=== PATIENT | male | born 1980 | race Caucasian/White ===

== ENCOUNTER 2019-12-26 21:59 | Emergency (ER) | payer MEDICAID ==
[~2019-12-26] VITALS: Ht 188 cm; Wt 158.8 kg
[2019-12-26 22:33] VITALS: BP_SYST 157
--- NOTE | 2019-12-26 22:33 | NUR ---
Patient triaged and placed in waiting room. VSS and patient appears in no acute distress at this time. Accompanied by SELF, awaiting available bed, and MD notified of need for MSE.
--- NOTE | 2019-12-27 00:45 | NUR ---
Patient to ER bed 03 to gown for evaluation. Side rails up.
--- NOTE | 2019-12-27 01:00 | NUR ---
ER at bedside examining patient.
--- NOTE | 2019-12-27 01:00 | NUR ---
Pt brought in by family member to ED. Pt awake, alert, oriented x4. pt ambulates with steady gait. Pt states that he had history of cellulitis to bilateral legs and has had increased swelling to R ankle and R inner thigh with marked redness and itching. Pt states that he thinks he might have been bit by an insect, as he has developed a small wound as of the past 3 days, and increasing tenderness. Pt states that he wanted to get RX of antibiotics as this usually resolves the skin problems. Pt states that he has no other medical complaint at this time. Pt denies shortness of breath, chest pain, nausea, vomiting, diarrhea, dizziness, nausea or any other complaint. vss
[2019-12-27] MEDS ORDERED: ACETAMINOPHEN 500 MG TABLET PO ONE (02:00)
[2019-12-27] MEDS ORDERED: cefTRIAXone 1 GM in LIDOCAINE 1%, 20 ML MDV 2.1 ML IM ONE (02:00)
[2019-12-27 03:11] LABS: BASOPHILS % (AUTO) 0.4 % (0.0-2.0); EOSINOPHILS # (AUTO) 0.2 K/uL (0.0-0.4); EOSINOPHILS % (AUTO) 1.7 % (0.0-4.0); HEMATOCRIT 40.8 % (36-54); HEMOGLOBIN 13.5 g/dL (14.0-18.0); LYMPHOCYTES # (AUTO) 1.2 K/uL (1.0-5.5); MEAN CORPUSCULAR HEMOGLOBIN 29 pg (27-31); MEAN CORPUSCULAR HGB CONC 33 % (32-36); MEAN CORPUSCULAR VOLUME 87 fL (79.0-98.0); MONOCYTES # (AUTO) 1.2 K/uL (0.0-1.0); MONOCYTES % (AUTO) 12.4 % (1.7-9.3); NEUTROPHILS # (AUTO) 7.1 K/uL (1.8-7.7); NEUTROPHILS % (AUTO) 73.5 % (40.0-70.0); PLATELET COUNT (AUTO) 195 K/uL (130-430); RED BLOOD CELL COUNT(AUTO) 4.69 MIL/uL (4.2-6.2); RED CELL DISTRIBUTION WIDTH 15.1 % (9.0-15.0); WHITE BLOOD COUNT (AUTO) 9.7 K/uL (4.8-10.8)
[2019-12-27 03:21] LABS: ANION GAP 4 (5-15); CALCIUM 8.2 mg/dL (8.4-11.0); CHLORIDE 102 mmol/L (98-107); CREATININE 1.29 mg/dL (0.55-1.30); GLUCOSE 99 mg/dL (70-99); POTASSIUM 3.7 mmol/L (3.5-5.1); SODIUM SERUM 137 mmol/L (136-145); UREA NITROGEN, BLOOD 15 mg/dL (8-21)
[2019-12-27 03:30] LABS: ALANINE AMINOTRANSFERASE 55 U/L (12-78); ALBUMIN 2.7 g/dL (3.4-4.8); ASPARTATE AMINOTRANSFERASE 53 U/L (10-37); TOTAL BILIRUBIN 0.7 mg/dL (0.0-1.0)
[2019-12-27 03:32] LABS: GFR AFRICAN AMERICAN 79 mL/min (>90)
--- NOTE | 2019-12-27 03:54 | NUR ---
PT READ AND SIGNED CT CHEST CONSENT ORDERED BY DR TURNER.PT VERBALIZED UNDERSTANDING.
--- NOTE | 2019-12-27 04:00 | NUR ---
Pt exceeds weight limit for CT machine. Pt weighed in Triage in excess of 440lbs
[2019-12-27] MEDS ORDERED: IOHEXOL 350 mgI/mL, 150 ML INFUS..BTL IV ONE (04:14)
--- NOTE | 2019-12-27 05:00 | NUR ---
brass instrument repair technician Calling to facilitate possible transfer of patient for CT W/contrast for Ruling out PE Per and physical limitations of CT equipment at [facility] [place]
--- NOTE | 2019-12-27 05:30 | NUR ---
Cutlery Grinder paged on-call field nurse case manager to facilitate transfer and continued care of patient.
--- NOTE | 2019-12-27 06:30 | NUR ---
pt states that he may be inclined to leave against medical advice. pt states he does not want to wait anymore.
--- NOTE | 2019-12-27 07:30 | NUR ---
Patient does not wish to proceed with medical care recommended by . Patient given information related to possible complications, up to and including , which could occur as a result of leaving hospital at this time. Patient verbalizes understanding of risks involved leaving against medical advice. Patient has signed AMA form.
== END 2019-12-27 07:30 | disposition left against medical advice (07) ==
LOC: SED 21:59
DX: L03.115 Cellulitis of right lower limb (principal); R22.41 Localized swelling, mass and lump, right lower limb; R79.1 Abnormal coagulation profile; Z88.0 Allergy status to penicillin
CPT/HCPCS: 36415; 80053; 84484; 85025; 85379; 93971; 96372; 99285; J0696; J2001; Q9967